=== PATIENT | male | born 1990 | race Caucasian/White ===

== ENCOUNTER 2017-08-29 17:07 | Emergency (ER) | payer SELFPAY ==
[~2017-08-29] VITALS: Ht 175.3 cm; Wt 104.6 kg
[2017-08-29] MEDS ORDERED: AUGMENTIN875 MG PO (18:37)
[2017-08-29] MEDS ORDERED: NORCO 5/3251 TABLET PO (18:37)
[2017-08-29 19:02] VITALS: BP 112/81
== END 2017-08-29 19:03 | disposition home or self-care (01) ==
LOC: EME 17:07
DX: S01.511A Laceration without foreign body of lip, initial encounter (principal); W54.0XXA Bitten by dog, initial encounter; Z23 Encounter for immunization
CPT/HCPCS: 99281; 99283